=== PATIENT | female | born 1970 ===

== ENCOUNTER → 2024-09-26 | Outpatient (CLI) | payer BC ==
--- NOTE | 2024-09-26 13:52 | CT ---
EXAMINATION TYPE: CT ChestAbdPelvis w con CT DLP: 639 mGycm, Automated exposure control for dose reduction was used. DATE OF EXAM: 09/26/2024 1:39 PM COMPARISON: None CLINICAL INDICATION:Female, 54 years old with history of K22.2 ESOPHAGEAL OBSTRUCTION; PHH, abdominal pain, difficulty swallowing Technique: Multiple axial images of the chest, abdomen, and pelvis were obtained following the intrav enous administration of 100 mL Isovue-300. Oral contrast was administered. Two-dimensional coronal an d sagittal reconstructions were obtained. Findings: CHEST: LUNGS/ PLEURA: The lung parenchyma appears unremarkable. No suspicious pulmonary nodule or mass. AIRWAY: Patent and unremarkable.. HEART: Size within normal limits. . No pericardial effusion. No significant coronary artery calcifica tions. MEDIASTINUM: No evidence of adenopathy. VASCULATURE: No aortic aneurysm. MUSCULOSKELETAL: Remote appearing superior endplate compression deformity and/or Schmorl's node invol ving the T8 vertebral body. Approximately 5-10% height loss with no retropulsion. Small Schmorl's nod es involving these endplates of the T11, T12 and L1 vertebral bodies. SOFT TISSUES/LYMPH NODES: Unremarkable. LOWER NECK: No significant findings. ABDOMEN: ABDOMEN LIVER: Unremarkable GALLBLADDER AND BILE DUCTS: The gallbladder is surgically absent. No biliary ductal dilatation. PANCREAS: Unremarkable. SPLEEN: Unremarkable. ADRENAL GLANDS: Unremarkable. KIDNEYS AND URETERS: No evidence of hydronephrosis. No left renal calculus. Nonobstructive right tavo l 2 mm calculus. The kidneys enhance symmetrically. Left renal sinus cysts. Contrast is demonstrated within both collecting systems and proximal ureters on the delayed phase. PELVIS BLADDER: Incompletely distended but grossly unremarkable. REPRODUCTIVE: Unremarkable. ABDOMEN & PELVIS STOMACH AND BOWEL: Enteric contrast reaches the distal transverse colon.There is irregular wall thick ening and/or mass involving the stomach at the gastroesophageal junction/cardia measuring approximate ly 3.7 x 2.5 cm (series 11, image 7). The appendix is within normal limits. No evidence of bowel obst ruction. PERITONEUM: No evidence of pneumoperitoneum or free fluid. VASCULATURE: No evidence of aortic aneurysm. MUSCULOSKELETAL: Remote appearing superior endplate compression deformity and/or Schmorl's node invol ving the T8 vertebral body. Approximately 5-10% height loss with no retropulsion. Small Schmorl's nod es involving these endplates of the T11, T12 and L1 vertebral bodies. LYMPH NODES: No evidence for lymphadenopathy. SOFT TISSUE/ABDOMINAL WALL: Unremarkable IMPRESSION: 1. Irregular wall thickening and/or mass at the GE junction/cardia. Enteric contrast does pass the G E junction. Recommend endoscopy for further evaluation. 2. Remote appearing superior endplate compression deformity and/or Schmorl's noted involving the T8 vertebral body. Correlate with point tenderness. 3. 3. Nonobstructive right renal calculus. [facility], , 09/26/2024 1:49 PM
== END | disposition home or self-care (01) ==
LOC: RADCTMAIN 11:27
PROVIDERS: ATTEND Emergency Medicine
DX: N20.0 Calculus of kidney (principal); K22.2 Esophageal obstruction
CPT/HCPCS: 71260; 74177; Q9967

== ENCOUNTER 2024-10-30 13:29 | Emergency (ER) | payer BC ==
--- NOTE | 2024-10-30 14:15 | ED ---
General Adult HPI - General Source: patient, RN notes reviewed Mode of arrival: ambulatory Limitations: no limitations <Harry Yen - Last Filed: 10/30/24 14:13> <Obdulio Shields - Last Filed: 10/30/24 19:44> - General Stated complaint: ABD PAIN Time Seen by Provider: 10/30/24 13:41 - History of Present Illness Initial comments: Quick note: This is a Romanian-speaking 54-year-old female presenting for abdominal pain. Patient is able to indicate that she is having epigastric pain. Also mentions bilateral upper extremity rash moving to her axilla. (Harry Yen) This is a 54-year-old female and she is Romanian-speaking and I used an capacitor repairer to get most of my history. Patient complains of rash all over her abdomen a little bit on her legs and it is very itchy. Patient states she started this rash this morning. Patient denies any new foods any new lotions any new detergents. Patient denies any new medications. Patient states she has not experienced this before. Patient denies any pain. Patient denies any fevers or chills. (Obdulio Shields) - Related Data Previous Rx's Medication Instructions Recorded predniSONE [Deltasone] 40 mg PO DAILY #8 tab 10/30/24 Allergies Allergy/AdvReac Type Severity Reaction Status Date / Time No Known Allergies Allergy Verified 10/30/24 14:36 Review of Systems ROS Other: All systems not noted in ROS Statement are negative. <Harry Yen - Last Filed: 10/30/24 14:13> ROS Other: All systems not noted in ROS Statement are negative. <Obdulio Shields - Last Filed: 10/30/24 19:44> ROS Statement: Those systems with pertinent positive or pertinent negative responses have been documented in the HPI. General Exam <Harry Yen - Last Filed: 10/30/24 14:13> <Obdulio Shields - Last Filed: 10/30/24 19:44> - General Exam Comments Initial Comments: Visual Physical Exam Vital signs reviewed General: Well-appearing, nontoxic, no acute distress. Head: Normocephalic, atraumatic Eyes: PERRLA, EOMI ENT: Airway patent Chest: Nonlabored breathing Skin: No visual rash, normal skin tone Neuro: Alert and oriented 3 Musculoskeletal: No gross abnormalities (Harry Yen) GENERAL: Patient is well-developed and well-nourished. Patient is nontoxic and well- hydrated and is in mild distress. ENT: Neck is soft and supple. No significant lymphadenopathy is noted. Oropharynx is clear. Moist mucous membranes. Neck has full range of motion without eliciting any pain. EYES: The sclera were anicteric and conjunctiva were pink and moist. Extraocular movements were intact and pupils were equal round and reactive to light. Eyelids were unremarkable. PULMONARY: Unlabored respirations. Good breath sounds bilaterally. No audible rales rhonchi or wheezing was noted. CARDIOVASCULAR: There is a regular rate and rhythm without any murmurs gallops or rubs. ABDOMEN: Soft and nontender with normal bowel sounds. SKIN: Patient has hives all over her abdomen and on her inner thighs. NEUROLOGIC: Patient is alert and oriented x3. Cranial nerves II through XII are grossly intact. Motor and sensory are also intact. Normal speech, volume and content. Symmetrical smile. MUSCULOSKELETAL: Normal extremities with adequate strength and full range of motion. No lower extremity swelling or edema. No calf tenderness. PSYCHIATRIC: Normal psychiatric evaluation. (Obdulio Shields) Course Vital Signs 10/30/24 14:25 Temperature 98.0 F Pulse Rate 66 Respiratory 16 Rate Blood Pressure 125/78 O2 Sat by Pulse 100 Oximetry Medical Decision Making <Harry Yen - Last Filed: 10/30/24 14:13> - Lab Data Result diagrams: 10/30/24 14:55 10/30/24 14:55 <Obdulio Shields - Last Filed: 10/30/24 19:44> - Medical Decision Making I completed the quick note portion of this chart signed VIKAS Delvalle (Harry Yen) Was pt. sent in by a medical professional or institution ([facility], [facility], urgent care, hospital, or care home...) When possible be specific @ -No Did you speak to anyone other than the patient for history (EMS, parent, family, police, friend...)? What history was obtained from this source @ -No Did you review nursing and triage notes (agree or disagree)? Why? @ -I reviewed and agree with nursing and triage notes Were old charts reviewed (outside hosp., previous admission, EMS record, old EKG, old radiological studies, urgent care reports/EKG's, care home records)? Report findings @ -No old charts were reviewed Differential Diagnosis? @ -Hives, viral exanthem, erythema multiforme, this is not an all-inclusive list EKG interpreted by me (3pts min.). @ -As above X-rays interpreted by me (1pt min.). @ -None done CT interpreted by me (1pt min.). @ -None done U/S interpreted by me (1pt. min.). @ -None done What testing was considered but not performed or refused? (CT, X-rays, U/S, labs)? Why? @ -None What meds were considered but not given or refused? Why? @ -None Did you discuss the management of the patient with other professionals (professionals i.e. , PA, [facility]ERMAN, lab, RT, psych nurse, social worker assistant, organ tuner, teacher, space officer, director of casework)? Give summary @ -No Was smoking cessation discussed for >3mins.? @ -No Was critical care preformed (if so, how long)? @ -No Were there social determinants of health that impacted care today? How? (Homelessness, low income, unemployed, alcoholism, drug addiction, transportation, low edu. Level, literacy, decrease access to med. care, nursing home, rehab)? @ -No Was there de-escalation of care discussed even if they declined (Discuss DNR or withdrawal of care, Hospice)? DNR status @ -No What co-morbidities impacted this encounter? (DM, HTN, Smoking, COPD, CAD, Cancer, CVA, ARF, Chemo, Hep., AIDS, mental health diagnosis, sleep apnea, morbid obesity)? @ -None Was patient admitted / discharged? Hospital course, mention meds given and route, prescriptions, significant lab abnormalities, going to OR and other pertinent info. @ -Patient was given Benadryl and prednisone and I went back and reevaluated her rash was gone and she was feeling considerably better. Patient states she had a little bit of pain and so I gave her some Toradol she stated that took away her pain completely Undiagnosed new problem with uncertain prognosis? @ -No Drug Therapy requiring intensive monitoring for toxicity (Heparin, Nitro, Insulin, Cardizem)? @ -No Were any procedures done? @ -No Diagnosis/symptom? @ -Allergic reaction Acute, or Chronic, or Acute on Chronic? @ -Acute Uncomplicated (without systemic symptoms) or Complicated (systemic symptoms)? @ -Complicated Side effects of treatment? @ -No Exacerbation, Progression, or Severe Exacerbation? @ -No Poses a threat to life or bodily function? How? (Chest pain, USA, IA, pneumonia, PE, COPD, DKA, ARF, appy, cholecystitis, CVA, Diverticulitis, Homicidal, Suicidal, threat to staff... and all critical care pts) @ -No (Obdulio Shields) - Lab Data Lab Results 10/30/24 10/30/24 10/30/24 Range/Units 14:55 14:55 14:55 WBC 7.26 (4.50-10.00) 10*3/uL RBC 4.37 (4.10-5.20) 10*6/uL Hgb 12.8 (12.0-15.0) g/dL Hct 39.4 (37.2-46.3) % MCV 90.2 (80.0-97.0) fL MCH 29.3 (27.0-32.0) pg MCHC 32.5 (32.0-37.0) g/dL Plt Count 318 (140-440) 10*3/uL MPV 10.3 (9.5-12.2) fL Immature Gran % (Auto) 0.3 % Neutrophils % 62.9 % Lymphocytes % 30.4 % Monocytes % 5.6 % Eosinophils % 0.1 % Basophils % 0.7 % Immature Gran # 0.02 (0.00-0.04) 10*3/uL Neutrophils # 4.56 (1.80-7.70) 10*3/uL Lymphocytes # 2.21 (0.90-5.00) 10*3/uL Monocytes # 0.41 (0.20-1.00) 10*3/uL Eosinophils # 0.01 L (0.04-0.35) 10*3/uL Basophils # 0.05 (0.00-0.10) 10*3/uL PT 10.1 (10.0-12.5) sec INR 0.9 (<1.2) APTT 24.5 (22.0-30.0) sec Sodium 141 (137-145) mmol/L Potassium 5.1 (3.5-5.1) mmol/L Chloride 105 (98-107) mmol/L Carbon Dioxide 30 (22-30) mmol/L Anion Gap 6 mmol/L BUN 15 (7-17) mg/dL Creatinine 0.58 (0.52-1.04) mg/dL Est GFR (CKD-EPI)AfAm >90 (>60 ml/min/1.73 sqM) Est GFR (CKD-EPI)NonAf >90 (>60 ml/min/1.73 sqM) Glucose 114 H (74-99) mg/dL Calcium 10.3 H (8.4-10.2) mg/dL Magnesium 2.3 (1.6-2.3) mg/dL Total Bilirubin 1.3 (0.2-1.3) mg/dL AST 18 (14-36) U/L ALT 12 (4-34) U/L Alkaline Phosphatase 94 (38-126) U/L Troponin I (0.000-0.034) ng/mL Total Protein 7.9 (6.3-8.2) g/dL Albumin 4.7 (3.5-5.0) g/dL Lipase 35 (23-300) U/L Urine Color Urine Appearance (Clear) Urine pH (5.0-8.0) Ur Specific [place] (1.001-1.035) Urine Protein (Negative) Urine Glucose (UA) (Negative) Urine Ketones (Negative) Urine Blood (Negative) Urine Nitrite (Negative) Urine Bilirubin (Negative) Urine Urobilinogen (<2.0) mg/dL Ur Leukocyte Esterase (Negative) Urine RBC (0-5) /hpf Urine WBC (0-5) /hpf Ur Squamous Epith Cells (0-4) /hpf Urine Mucus (None) /hpf 10/30/24 10/30/24 Range/Units 14:55 15:15 WBC (4.50-10.00) 10*3/uL RBC (4.10-5.20) 10*6/uL Hgb (12.0-15.0) g/dL Hct (37.2-46.3) % MCV (80.0-97.0) fL MCH (27.0-32.0) pg MCHC (32.0-37.0) g/dL Plt Count (140-440) 10*3/uL MPV (9.5-12.2) fL Immature Gran % (Auto) % Neutrophils % % Lymphocytes % % Monocytes % % Eosinophils % % Basophils % % Immature Gran # (0.00-0.04) 10*3/uL Neutrophils # (1.80-7.70) 10*3/uL Lymphocytes # (0.90-5.00) 10*3/uL Monocytes # (0.20-1.00) 10*3/uL Eosinophils # (0.04-0.35) 10*3/uL Basophils # (0.00-0.10) 10*3/uL PT (10.0-12.5) sec INR (<1.2) APTT (22.0-30.0) sec Sodium (137-145) mmol/L Potassium (3.5-5.1) mmol/L Chloride (98-107) mmol/L Carbon Dioxide (22-30) mmol/L Anion Gap mmol/L BUN (7-17) mg/dL Creatinine (0.52-1.04) mg/dL Est GFR (CKD-EPI)AfAm (>60 ml/min/1.73 sqM) Est GFR (CKD-EPI)NonAf (>60 ml/min/1.73 sqM) Glucose (74-99) mg/dL Calcium (8.4-10.2) mg/dL Magnesium (1.6-2.3) mg/dL Total Bilirubin (0.2-1.3) mg/dL AST (14-36) U/L ALT (4-34) U/L Alkaline Phosphatase (38-126) U/L Troponin I <0.012 (0.000-0.034) ng/mL Total Protein (6.3-8.2) g/dL Albumin (3.5-5.0) g/dL Lipase (23-300) U/L Urine Color Yellow Urine Appearance Clear (Clear) Urine pH 7.5 (5.0-8.0) Ur Specific [place] 1.026 (1.001-1.035) Urine Protein Negative (Negative) Urine Glucose (UA) Negative (Negative) Urine Ketones Negative (Negative) Urine Blood Negative (Negative) Urine Nitrite Negative (Negative) Urine Bilirubin Negative (Negative) Urine Urobilinogen 2.0 (<2.0) mg/dL Ur Leukocyte Esterase Large H (Negative) Urine RBC 3 (0-5) /hpf Urine WBC 41 H (0-5) /hpf Ur Squamous Epith Cells 4 (0-4) /hpf Urine Mucus Occasional H (None) /hpf Disposition <Harry Yen - Last Filed: 10/30/24 14:13> Is patient prescribed a controlled substance at d/c from ED?: No Time of Disposition: 19:44 <Obdulio Shields - Last Filed: 10/30/24 19:44> Clinical Impression: Allergic reaction Disposition: HOME SELF-CARE Instructions (If sedation given, give patient instructions): General Allergic Reaction (ED) Additional Instructions: Patient should take Benadryl as needed for itching or hives. Patient is to take prednisone as prescribed Prescriptions: predniSONE [Deltasone] 40 mg PO DAILY #8 tab Referrals: Jay Al MD [Primary Care Provider] - 1-2 days
[2024-10-30 14:35] VITALS: RESP 16
[2024-10-30 15:09] LABS: Basophils # (A) 0.05 10*3/uL (0.00-0.10); Basophils % (A) 0.7 %; Eosinophils # (A) 0.01 10*3/uL (0.04-0.35); Eosinophils % (A) 0.1 %; HCT 39.4 % (37.2-46.3); HGB 12.8 g/dL (12.0-15.0); Lymphocytes # (A) 2.21 10*3/uL (0.90-5.00); Lymphocytes % (A) 30.4 %; MCH 29.3 pg (27.0-32.0); MCHC 32.5 g/dL (32.0-37.0); MCV 90.2 fL (80.0-97.0); Mean Platelet Volume 10.3 fL (9.5-12.2); Monocytes # (A) 0.41 10*3/uL (0.20-1.00); Monocytes % (A) 5.6 %; Neutrophils # (A) 4.56 10*3/uL (1.80-7.70); Neutrophils % (A) 62.9 %; Platelet Count 318 10*3/uL (140-440); RBC 4.37 10*6/uL (4.10-5.20); RDW 12.7 % (11.5-14.5); WBC 7.26 10*3/uL (4.50-10.00)
[2024-10-30 15:18] LABS: INR 0.9 (<1.2); Partial Thromboplastin Time 24.5 sec (22.0-30.0); Prothrombin Time 10.1 sec (10.0-12.5)
[2024-10-30 15:24] LABS: ALT 12 U/L (4-34); AST 18 U/L (14-36); African American GFR (CKD) >90 (>60 ml/min/1.73 sqM); Albumin 4.7 g/dL (3.5-5.0); Alkaline Phosphatase 94 U/L (38-126); Anion Gap 6 mmol/L; Blood Urea Nitrogen 15 mg/dL (7-17); Calcium 10.3 mg/dL (8.4-10.2); Carbon Dioxide 30 mmol/L (22-30); Chloride 105 mmol/L (98-107); Glucose 114 mg/dL (74-99); Lipase 35 U/L (23-300); Magnesium 2.3 mg/dL (1.6-2.3); Non-African American GFR(CKD) >90 (>60 ml/min/1.73 sqM); Potassium 5.1 mmol/L (3.5-5.1); Sodium 141 mmol/L (137-145); Total Bilirubin 1.3 mg/dL (0.2-1.3); Total Protein 7.9 g/dL (6.3-8.2)
[2024-10-30 15:35] LABS: Appearance,Urine Clear (Clear); Bilirubin,Urine Negative (Negative); Blood,Urine Negative (Negative); Color,Urine Yellow; Glucose,Urine (UA) Negative (Negative); Ketones,Urine Negative (Negative); Leukocyte Esterase,Urine Large (Negative); Mucus,Urine Occasional /hpf; Nitrite,Urine Negative (Negative); PH, Urine 7.5 (5.0-8.0); Protein,Urine Negative (Negative); RBC,Urine 3 /hpf (0-5); Specific Gravity,Urine 1.026 (1.001-1.035); Squamous Epithelial Cell,Urine 4 /hpf (0-4); WBC,Urine 41 /hpf (0-5)
--- NOTE | 2024-10-30 16:11 | XR ---
EXAMINATION TYPE: XR chest 2V DATE OF EXAM: 10/30/2024 4:06 PM COMPARISON: Correlation CT 09/26/2024 CLINICAL INDICATION: Female, 54 years old with history of Epigastric pain, , TECHNIQUE: PA and lateral views FINDINGS: The cardiomediastinal silhouette, aorta, and pulmonary vasculature are within normal limits. Mild hyp erinflation. Mild interstitial prominence. No consolidation or pleural effusion. IMPRESSION: COPD with mild emphysema. No acute cardiopulmonary process. [facility], Workstation: [facility], 10/30/2024 4:09 PM
[2024-10-30] MEDS: predniSONE 20 MG TAB PO STA (17:10)
[2024-10-30] MEDS: diphenhydrAMINE 50 MG/ML 1 ML VIAL IVP STA (17:11)
[2024-10-30] MEDS: FAMOTIDINE 20 MG/2 ML VIAL IV STA (17:14)
[2024-10-30] MEDS: KETOROLAC 15 MG/ML 1 ML VIAL IVP STA (18:21)
[2024-10-30 20:08] VITALS: BP 134/80; PULSE 62; TEMP 97
== END 2024-10-30 20:11 | disposition home or self-care (01) ==
LOC: EC 13:29
DX: T78.40XA Allergy, unspecified, initial encounter (principal)
CPT/HCPCS: 36415; 93005; 80053; 83690; 83735; 84484; 85025; 85610; 85730; 81001; 87086; 71046; 99284; 96374; 96375 ×2; J1200; J1885; J7512; J1308